=== PATIENT | female | born 1965 | race African-American/Black ===

== ENCOUNTER 2019-11-04 19:06 | Inpatient (IN) | payer OTHER ==
[~2019-11-04] VITALS: Ht 165.1 cm; Wt 100.7 kg
[2019-11-04 19:15] VITALS: BP 117/85
[2019-11-04] MEDS ORDERED: CLONIDINE0.1 MG GT (19:23)
[2019-11-04] MEDS ORDERED: OXCARBAZEPINE600 MG PO (19:23)
[2019-11-04] MEDS ORDERED: METFORMIN500 MG/5 M PO (19:23)
[2019-11-04] MEDS ORDERED: QUETIAPINE FUM300 MG ORAL (19:23)
[2019-11-04] MEDS ORDERED: FLUOXETINE HCL25 G1 MISC (19:23)
[2019-11-04] MEDS ORDERED: GABAPENTIN250 MG/5 M PO (19:23)
--- NOTE | 2019-11-04 19:34 | NUR ---
ED Nurse Note: Patient walked into the ED with complaints of gastric bypass blockage. Patient had surgery revision October 2018. Patient reported she was not able to hold any food and fluids recently. Patient reports epigastric pain 6/10 and denies any chest pain. Pain was described as aching and at times sharp. Patient is AAOX4 and ambulatory
--- NOTE | 2019-11-04 19:38 | NUR ---
ED Nurse Note: ERMD at bedside
[2019-11-04] MEDS ORDERED: Metoclopramide 10mg/2ml Inj IVP ONE (19:45)
[2019-11-04] MEDS ORDERED: Omnipaque-300 100ml vial INJ PRN (19:45)
[2019-11-04] MEDS ORDERED: Morphine Sulfate 4mg/ml Inj (IV USE ONLY) IVP ONE (19:45)
[2019-11-04 20:08] LABS: EOSINOPHILS % (AUTO) 1.9 % (0.0-3.0); HEMATOCRIT 38.3 % (37.0-47.0); HEMOGLOBIN 11.4 G/DL (12.0-16.0); MEAN CORPUSCULAR VOLUME 89 FL (80-99); MONOCYTES % (AUTO) 9.7 % (1.0-10.0); NEUTROPHILS % (AUTO) 60.4 % (45.0-75.0); PLATELET COUNT 254 K/UL (150-450); RED CELL DISTRIBUTION WIDTH 14.6 % (11.6-14.8); WHITE BLOOD COUNT 5.7 K/UL (4.8-10.8)
--- NOTE | 2019-11-04 20:11 | Emergency Room Report ---
History of Present Illness General Chief Complaint: Gastrointestinal Illness Source: Patient (Dominique Jha DO) Present Illness HPI Patient presents with complaints of mid abdominal pain multiple episodes of vomiting since yesterday Patient reports that she had previous gastric bypass She had a revision 2 years ago And now has been having increased vomiting denies any fevers denies any chest pain denies any diarrhea denies any back or flank pain denies any dysuria frequency (Dominique Jha DO) Allergies: Coded Allergies: No Known Allergies (Unverified , 11/04/19) COVID-19 Screening Contact w/high risk pt: No Recent Travel to affected area: No Experienced COVID-19 symptoms?: No COVID-19 Testing performed ETHNOLOGY PROFESSOR: No COVID-19 Screening: Negative COVID-19 (Dominique Jha DO) Patient History Past Medical History: see triage record Last Menstrual Period: 2009 Now: No : 1 Para: 0 Reviewed Nursing Documentation: PMH: Agreed; PSxH: Agreed (Dominique Jha DO) Nursing Documentation-PMH Past Medical History: No History, Except For History Of Psychiatric Problem: Yes - bipolar; anxiety; depression (Dominique Jha DO) Review of Systems All Other Systems: negative except mentioned in HPI (Dominique Jha DO) Physical Exam Vital Signs Date Time Temp Pulse Resp B/P (MAP) Pulse Ox O2 Delivery O2 Flow Rate FiO2 11/04/19 19:12 98.4 78 16 117/85 (96) 95 Room Air Sp02 EP Interpretation: reviewed, normal General Appearance: well appearing, no apparent distress Head: normocephalic, atraumatic Eyes: bilateral eye PERRL, bilateral eye EOMI ENT: hearing grossly normal, normal pharynx, TMs + canals normal, uvula midline Neck: full range of motion, supple, no meningismus, no bony tend Respiratory: lungs clear, normal breath sounds, no rhonchi, no respiratory distress, no retraction, no accessory muscle use Cardiovascular #1: normal peripheral pulses, regular rate, rhythm, no edema, no gallop, no JVD, no murmur Gastrointestinal: normal bowel sounds, non tender - On palpation however patient points to the mid epigastric region for discomfort, soft, no mass, no organomegaly, non-distended, no guarding, no hernia, no pulsatile mass, no rebound Genitourinary: no CVA tenderness Musculoskeletal: normal inspection Neurologic: motor strength/tone normal, associate director of sales III-XII nml as tested, oriented x3 , sensory intact, responsive Psychiatric: mood/affect normal Skin: no rash Lymphatic: normal inspection, no adenopathy (Dominique Jha DO) Medical Decision Making Diagnostic Impression: Primary Impression: Intractable vomiting with nausea Additional Impression: UTI (urinary tract infection) Qualified Codes: N30.00 - Acute cystitis without hematuria ER Course With the history exam and presentation, multiple differentials considered, including but not limited to appendicitis, gastritis, cholecystitis, diverticulitis, differential such as bowel obstruction also entertained Patient had CT imaging done with oral and IV contrast Labs Test 11/04/19 19:50 White Blood Count 5.7 K/UL (4.8-10.8) Red Blood Count 4.30 M/UL (4.20-5.40) Hemoglobin 11.4 G/DL (12.0-16.0) Hematocrit 38.3 % (37.0-47.0) Mean Corpuscular Volume 89 FL (80-99) Mean Corpuscular Hemoglobin 26.5 PG (27.0-31.0) Mean Corpuscular Hemoglobin Concent 29.8 G/DL (32.0-36.0) Red Cell Distribution Width 14.6 % (11.6-14.8) Platelet Count 254 K/UL (150-450) Mean Platelet Volume 7.0 FL (6.5-10.1) Neutrophils (%) (Auto) 60.4 % (45.0-75.0) Lymphocytes (%) (Auto) 27.0 % (20.0-45.0) Monocytes (%) (Auto) 9.7 % (1.0-10.0) Eosinophils (%) (Auto) 1.9 % (0.0-3.0) Basophils (%) (Auto) 1.0 % (0.0-2.0) Sodium Level 138 MMOL/L (136-145) Potassium Level 4.2 MMOL/L (3.5-5.1) Chloride Level 101 MMOL/L (98-107) Carbon Dioxide Level 27 MMOL/L (21-32) Anion Gap 10 mmol/L (5-15) Blood Urea Nitrogen 12 mg/dL (7-18) Creatinine 0.9 MG/DL (0.55-1.30) Estimat Glomerular Filtration Rate > 60 mL/min (>60) Glucose Level 99 MG/DL (74-106) Calcium Level 9.1 MG/DL (8.5-10.1) Total Bilirubin 0.2 MG/DL (0.2-1.0) Aspartate Amino Transf (AST/SGOT) 18 U/L (15-37) Alanine Aminotransferase (ALT/SGPT) 29 U/L (12-78) Alkaline Phosphatase 114 U/L (46-116) Total Protein 7.4 G/DL (6.4-8.2) Albumin 3.6 G/DL (3.4-5.0) Globulin 3.8 g/dL Albumin/Globulin Ratio 0.9 (1.0-2.7) Lipase 237 U/L (73-393) (Dominique Jha DO) ER Course Patient signed out to me. She presents with chief complaint of nausea and vomiting and unable to keep anything in. She has history of gastric bypass. CT scan showed enteritis but no evidence of any obstruction. Urinalysis with possible UTI. Antibiotics given here. IV fluids given here. I try to give patient p.o. challenge with liquid but she started vomiting again. Because of this, will admit for IV hydration. I contacted Dr. Medina for admission. (Ta Sawant MD) CT/MRI/US Diagnostic Results CT/MRI/US Diagnostic Results : Imaging Test Ordered: CT abdomen and pelvis Impression Read by radiologist. No obstruction. Status post gastric bypass surgery. Fluid within a few loops of small bowel and pelvis which may be seen in enteritis. (Ta Sawant MD) Last Vital Signs Date Time Temp Pulse Resp B/P (MAP) Pulse Ox O2 Delivery O2 Flow Rate FiO2 11/04/19 19:12 98.4 78 16 117/85 (96) 95 Room Air (Dominique Jha DO) Status: improved (Ta Sawant MD) Disposition: ADMITTED INPATIENT Condition: Serious Referrals: NOT CHOSEN DAVID/,REFERRING (PCP) Dominique Jha DO Nov 04, 2019 20:11 Ta Sawant MD Nov 04, 2019 22:35
[2019-11-04 20:22] LABS: ANION GAP 10 mmol/L (5-15); BLOOD UREA NITROGEN 12 mg/dL (7-18); CALCIUM 9.1 MG/DL (8.5-10.1); CARBON DIOXIDE 27 MMOL/L (21-32); CHLORIDE 101 MMOL/L (98-107); CREATININE 0.9 MG/DL (0.55-1.30); POTASSIUM 4.2 MMOL/L (3.5-5.1); SODIUM 138 MMOL/L (136-145)
[2019-11-04 20:26] LABS: ALANINE AMINOTRANSFERASE 29 U/L (12-78); ALBUMIN 3.6 G/DL (3.4-5.0); ALBUMIN/GLOBULIN RATIO 0.9 (1.0-2.7); ALKALINE PHOSPHATASE 114 U/L (46-116); ASPARTATE AMINO TRANSFERASE 18 U/L (15-37); BILIRUBIN,TOTAL 0.2 MG/DL (0.2-1.0)
--- NOTE | 2019-11-04 21:27 | Diagnostic Imaging Report ---
EXAM: CT Abdomen and Pelvis With Intravenous Contrast CLINICAL HISTORY: PAIN TECHNIQUE: Axial computed tomography images of the abdomen and pelvis with intravenous contrast. CTDI is 14 mGy and DLP is 836 mGy-cm. One or more of the following dose reduction techniques were used: automated exposure control, adjustment of the mA and/or kV according to patient size, use of iterative reconstruction technique. COMPARISON: No relevant prior studies available. FINDINGS: Lung bases: Linear subsegmental atelectasis at the left lung base. ABDOMEN: Liver: Unremarkable. No mass. Gallbladder and bile ducts: Status post cholecystectomy. No ductal dilation. Pancreas: Unremarkable. No mass. No ductal dilation. Spleen: Unremarkable. No splenomegaly. Adrenals: Unremarkable. No mass. Kidneys and ureters: Unremarkable. No solid mass. No hydronephrosis. Stomach and bowel: Status post gastric bypass surgery. Small hiatal hernia with contrast in the stomach and esophagus. There is some mild stranding adjacent to the anterior stomach. There is fluid present within a few nondilated loops of small bowel in the pelvis. No mucosal thickening. PELVIS: Appendix: Normal appendix. Bladder: Unremarkable. No mass. Reproductive: Unremarkable as visualized. ABDOMEN and PELVIS: Intraperitoneal space: Unremarkable. No free air. No significant fluid collection. Bones/joints: No acute fracture. No dislocation. Soft tissues: The subcutaneous scarring at the anterior abdomen. Vasculature: Unremarkable. No abdominal aortic aneurysm. Lymph nodes: Unremarkable. No enlarged lymph nodes. IMPRESSION: 1. Status post gastric bypass surgery. Small hiatal hernia. 2. Fluid within a few loops of small bowel in the pelvis which can be seen in enteritis, however can also be a normal finding. No evidence of bowel obstruction. 3. No other acute findings.
[2019-11-04 22:02] VITALS: BP 118/76
--- NOTE | 2019-11-04 22:14 | NUR ---
ED Nurse Note: Recieved report from SHAHANA Blankenship. Pt placed in ortho, VSS. will continue to monitor
[2019-11-04 22:27] LABS: APPEARANCE,URINE CLEAR; BILIRUBIN, URINE NEGATIVE (NEGATIVE); COLOR,URINE PALE YELLOW; GLUCOSE, URINE (UA) NEGATIVE (NEGATIVE); KETONES,URINE NEGATIVE (NEGATIVE); LEUKOCYTE ESTERASE ,URINE 3+ (NEGATIVE); NITRITE,URINE NEGATIVE (NEGATIVE); PH,URINE 6.5 (4.5-8.0); PROTEIN,URINE NEGATIVE (NEGATIVE); UROBILINOGEN,URINE NORMAL MG/DL (0.0-1.0)
[2019-11-04] MEDS ORDERED: cefTRIAXone 1 GM in NS 55 ML IVPB ONE (22:30)
[2019-11-04] MEDS ORDERED: QUEtiapine 200mg tab ORAL PRN (23:30)
--- NOTE | 2019-11-04 23:30 | NUR ---
NURSE NOTES: Received patient from ED via [facility]. Patient able to transfer from [facility] to unit bed with no assistance. VSS. Oriented to room and bathroom. Admission orders received from Dr Medina. Patient c/o mild pain and wants her nightly psych medications, Dr Medina aware. Belongings accounted for. Patient given non slip socks, bed low and locked.
[2019-11-04] MEDS ORDERED: Morphine Sulfate 2mg/ml Inj(IV/IM USE ONLY) IVP PRN (23:45)
[2019-11-05] VITALS: BP 140/85
[2019-11-05] MEDS: Morphine Sulfate 2mg/ml Inj(IV/IM USE ONLY) IVP PRN ×2 (00:03→10:52)
[2019-11-05] MEDS ORDERED: OXcarbazepine 150mg tab ORAL SCH (01:00)
--- NOTE | 2019-11-05 01:00 | NUR ---
NURSE NOTES: Patient able to tolerate PO meds with small sip of water. No c/o nausea at this time.
[2019-11-05] MEDS: D5NS 1,000 ML IV SCH ×2 (01:30→18:31)
[2019-11-05 04:00] VITALS: BP 117/74
--- NOTE | 2019-11-05 07:40 | NUR ---
HAND-OFF: Report given to SHAHANA Huynh.
--- NOTE | 2019-11-05 07:56 | NUR ---
NURSE NOTES: Patient resting,alert when name called ,respirations unlabored.IV fluids infusing as ordered.Call light within reach.
[2019-11-05 08:00] VITALS: BP 102/68
--- NOTE | 2019-11-05 08:14 | Consultation ---
History of Present Illness General Chief Complaint: Gastrointestinal Illness Present Illness HPI Ms. Albright is a 54 yo female with prior hx of gastric bypass (done in [place] >10 years ago, then repaired 1 year ago), obesity, ddepression, presenting with acute on chronic abdominal pain and acute nausea, vomiting. She has been experiencing episodic severe abdominal pain in mid-abdomen for last 1 year, which has been getting more frequent. However, 2 days ago, she started feeling that food was not going down. She would throw back up the food contents, but was able to tolerate liquids. Last BM was 2 days ago, was diarrhea-like, but no BM since. Passing gas. Currently feeling okay. no fever, chills, SOB, cough, chest pain. Allergies: Coded Allergies: No Known Allergies (Unverified , 11/04/19) Medication History Scheduled Metformin HCl (Metformin HCl), 500 MG PO BID, (Reported) Quetiapine Fumarate (Quetiapine Fumarate), 700 MG ORAL BEDTIME, (Reported) Scheduled PRN Clonidine HCl (Clonidine HCl), 0.1 MG GT for anxiety, (Reported) Gabapentin (Gabapentin), 600 MG PO TID PRN for anxiety, (Reported) Miscellaneous Medications Fluoxetine (Fluoxetine Hcl), 20 MG MISC, (Reported) Oxcarbazepine (Oxcarbazepine), 600 MG PO, (Reported) Patient History Healthcare decision maker Resuscitation status Advanced Directive on File Review of Systems All Other Systems: negative except mentioned in HPI Physical Exam General Appearance: no apparent distress Lines, tubes and drains: peripheral HEENT: normocephalic Neck: non-tender, normal alignment Respiratory/Chest: chest wall non-tender, lungs clear Abdomen: soft, hyperactive bowel sounds Extremities: normal range of motion, non-tender Skin Exam: normal pigmentation Neurologic: alert, oriented x 3 Last 24 Hour Vital Signs Date Time Temp Pulse Resp B/P (MAP) Pulse Ox O2 Delivery O2 Flow Rate FiO2 11/05/19 04:00 97.5 74 17 117/74 (88) 95 11/05/19 01:53 Room Air 11/05/19 00:33 98.0 11/05/19 00:00 97.1 81 17 140/85 (103) 97 11/04/19 22:55 98.0 88 16 118/76 98 Room Air 98 11/04/19 22:02 98.0 88 18 118/76 98 Room Air 98 11/04/19 22:02 78 16 Room Air 98 11/04/19 20:30 98.0 11/04/19 19:15 98.4 16 117/85 95 Room Air 11/04/19 19:12 98.4 78 16 117/85 (96) 95 Room Air Laboratory Tests Test 11/04/19 19:50 11/04/19 22:00 White Blood Count 5.7 K/UL (4.8-10.8) Red Blood Count 4.30 M/UL (4.20-5.40) Hemoglobin 11.4 G/DL (12.0-16.0) L Hematocrit 38.3 % (37.0-47.0) Mean Corpuscular Volume 89 FL (80-99) Mean Corpuscular Hemoglobin 26.5 PG (27.0-31.0) L Mean Corpuscular Hemoglobin Concent 29.8 G/DL (32.0-36.0) L Red Cell Distribution Width 14.6 % (11.6-14.8) Platelet Count 254 K/UL (150-450) Mean Platelet Volume 7.0 FL (6.5-10.1) Neutrophils (%) (Auto) 60.4 % (45.0-75.0) Lymphocytes (%) (Auto) 27.0 % (20.0-45.0) Monocytes (%) (Auto) 9.7 % (1.0-10.0) Eosinophils (%) (Auto) 1.9 % (0.0-3.0) Basophils (%) (Auto) 1.0 % (0.0-2.0) Sodium Level 138 MMOL/L (136-145) Potassium Level 4.2 MMOL/L (3.5-5.1) Chloride Level 101 MMOL/L (98-107) Carbon Dioxide Level 27 MMOL/L (21-32) Anion Gap 10 mmol/L (5-15) Blood Urea Nitrogen 12 mg/dL (7-18) Creatinine 0.9 MG/DL (0.55-1.30) Estimat Glomerular Filtration Rate > 60 mL/min (>60) Glucose Level 99 MG/DL (74-106) Calcium Level 9.1 MG/DL (8.5-10.1) Total Bilirubin 0.2 MG/DL (0.2-1.0) Aspartate Amino Transf (AST/SGOT) 18 U/L (15-37) Alanine Aminotransferase (ALT/SGPT) 29 U/L (12-78) Alkaline Phosphatase 114 U/L (46-116) Total Protein 7.4 G/DL (6.4-8.2) Albumin 3.6 G/DL (3.4-5.0) Globulin 3.8 g/dL Albumin/Globulin Ratio 0.9 (1.0-2.7) L Lipase 237 U/L (73-393) Urine Color Pale yellow Urine Appearance Clear Urine pH 6.5 (4.5-8.0) Urine Specific [place] 1.015 (1.005-1.035) Urine Protein Negative (NEGATIVE) Urine Glucose (UA) Negative (NEGATIVE) Urine Ketones Negative (NEGATIVE) Urine Blood Negative (NEGATIVE) Urine Nitrite Negative (NEGATIVE) Urine Bilirubin Negative (NEGATIVE) Urine Urobilinogen Normal MG/DL (0.0-1.0) Urine Leukocyte Esterase 3+ (NEGATIVE) H Urine RBC 0-2 /HPF (0 - 2) Urine WBC 5-10 /HPF (0 - 2) H Urine Squamous Epithelial Cells Moderate /LPF (NONE/OCC) H Urine Bacteria Few /HPF (NONE) Height (Feet): 5 Height (Inches): 5.00 Weight (Pounds): 222 Medications Current Medications Medications (Trade) Dose Ordered Sig/Cassandra Route PRN Reason Start Time Stop Time Status Last Admin Dose Admin Acetaminophen (Tylenol) 650 mg Q6H PRN ORAL Mild Pain (Pain Scale 1-3) 11/04/19 23:45 12/04/19 23:44 Barium Sulfate (Readi-Cat 2) 450 ml NOW PRN ORAL Radiology Procedure 11/04/19 19:45 11/06/19 19:35 Dextrose/Sodium Chloride 1,000 ml @ 75 mls/hr [id number] IV 11/05/19 01:00 12/05/19 00:59 11/05/19 01:30 Fluoxetine HCl (PROzac) 20 mg DAILY ORAL 11/05/19 09:00 12/05/19 08:59 Iohexol (OMNIPAQUE-300 100ml) 100 ml NOW PRN INJ Radiology Procedure 11/04/19 19:45 11/06/19 19:35 Morphine Sulfate (Morphine Sulfate) 1 mg Q6H PRN IVP Moderate Pain (Pain Scale 4-6) 11/04/19 23:45 11/11/19 23:44 11/05/19 00:03 Morphine Sulfate (Morphine Sulfate) 2 mg Q6H PRN IVP Severe Pain (Pain Scale 7-10) 11/04/19 23:45 11/11/19 23:44 Ondansetron HCl (Zofran) 4 mg PRN PRN IVP Nausea & Vomiting 11/04/19 22:45 Oxcarbazepine (TrileptaL) 600 mg BEDTIME ORAL 11/05/19 21:00 12/05/19 20:59 Piperacillin Sod/ Tazobactam Sod 3.375 gm/Sodium Chloride 110 ml @ 27.5 mls/hr Q8H IVPB 11/05/19 09:00 11/12/19 08:59 Quetiapine Fumarate (SEROqueL) 300 mg BEDTIME PRN ORAL INSOMNIA 11/04/19 23:30 12/19/19 23:29 11/05/19 00:02 Assessment/Plan Diagnosis [place]: #hx of gastric bypass #intractaable nausea, vomiting #Acute on chronic abdominal pain #Depression -GI eval -CLD for today. NPO after MN for endoscopy tmrw. -Pain control. -continue home quetiapine -continue home fluoxetine -otherwise euthymic on exam. Time of encounter 70 mins, >40 mins spent on counseling and coordination of care. Salvador Medina M.D. Nov 05, 2019 08:14
--- NOTE | 2019-11-05 08:50 | General Progress Note ---
Assessment/Plan Problem List: (1) H/O gastric bypass ICD Codes: Z98.84 - Bariatric surgery status SNOMED: 609110998 (2) Intractable vomiting with nausea ICD Codes: R11.2 - Nausea with vomiting, unspecified SNOMED: 380091034 (3) UTI (urinary tract infection) ICD Codes: N39.0 - Urinary tract infection, site not specified SNOMED: 68997270 Qualifiers: Qualified Codes: N30.00 - Acute cystitis without hematuria Assessment/Plan: ppi clears bowel regimen EGD in am CT reviewed abx for UTI Subjective ROS Limited/Unobtainable: Yes Allergies: Coded Allergies: No Known Allergies (Unverified , 11/04/19) Objective Last 24 Hour Vital Signs Date Time Temp Pulse Resp B/P (MAP) Pulse Ox O2 Delivery O2 Flow Rate FiO2 11/05/19 04:00 97.5 74 17 117/74 (88) 95 11/05/19 01:53 Room Air 11/05/19 00:33 98.0 11/05/19 00:00 97.1 81 17 140/85 (103) 97 11/04/19 22:55 98.0 88 16 118/76 98 Room Air 98 11/04/19 22:02 98.0 88 18 118/76 98 Room Air 98 11/04/19 22:02 78 16 Room Air 98 11/04/19 20:30 98.0 11/04/19 19:15 98.4 16 117/85 95 Room Air 11/04/19 19:12 98.4 78 16 117/85 (96) 95 Room Air Laboratory Tests 11/04/19 19:50: White Blood Count 5.7, Red Blood Count 4.30, Hemoglobin 11.4L, Hematocrit 38.3, Mean Corpuscular Volume 89, Mean Corpuscular Hemoglobin 26.5L, Mean Corpuscular Hemoglobin Concent 29.8L, Red Cell Distribution Width 14.6, Platelet Count 254, Mean Platelet Volume 7.0, Neutrophils (%) (Auto) 60.4, Lymphocytes (%) (Auto) 27.0, Monocytes (%) (Auto) 9.7, Eosinophils (%) (Auto) 1.9, Basophils (%) (Auto ) 1.0, Sodium Level 138, Potassium Level 4.2, Chloride Level 101, Carbon Dioxide Level 27, Anion Gap 10, Blood Urea Nitrogen 12, Creatinine 0.9, Estimat Glomerular Filtration Rate > 60, Glucose Level 99, Calcium Level 9.1, Total Bilirubin 0.2, Aspartate Amino Transf (AST/SGOT) 18, Alanine Aminotransferase ( ALT/SGPT) 29, Alkaline Phosphatase 114, Total Protein 7.4, Albumin 3.6, Globulin 3.8, Albumin/Globulin Ratio 0.9L, Lipase 237 11/04/19 22:00: Urine Color Pale yellow, Urine Appearance Clear, Urine pH 6.5, Urine Specific [place] 1.015, Urine Protein Negative, Urine Glucose (UA) Negative, Urine Ketones Negative, Urine Blood Negative, Urine Nitrite Negative, Urine Bilirubin Negative, Urine Urobilinogen Normal, Urine Leukocyte Esterase 3+H, Urine RBC 0-2 , Urine WBC 5-10H, Urine Squamous Epithelial Cells ModerateH, Urine Bacteria Few Height (Feet): 5 Height (Inches): 5.00 Weight (Pounds): 222 General Appearance: alert EENT: normal ENT inspection Neck: supple Cardiovascular: normal rate Respiratory/Chest: lungs clear Abdomen: normal bowel sounds, non tender, soft Extremities: non-tender Bradley Heath MD Nov 05, 2019 08:50
--- NOTE | 2019-11-05 09:12 | NUR ---
*-* NO INSURANCE INFORMATION IN THE BAR UNABLE TO SEND CLINICALS OR REVIEWS TO [employer]. *-*
[2019-11-05] MEDS: Pantoprazole Inj IV SCH ×2 (10:00→20:49)
[2019-11-05] MEDS: Docusate 100mg cap ORAL SCH ×2 (10:01→18:00)
[2019-11-05] MEDS: Piperacillin/Tazobactam 3.375 GM in NS 110 ML IVPB SCH ×2 (10:02→17:00)
--- NOTE | 2019-11-05 10:53 | NUR ---
*-* INSURANCE *-* ALL AVAILABLE CLINICALS HAVE BEEN FAXED TO: [facility]#[id number] P:[phone] F:[phone]
[2019-11-05 12:00] VITALS: BP 110/70
--- NOTE | 2019-11-05 14:13 | NUR ---
CASE MANAGEMENT: INITIAL REVIEW 54YR OLD FEMALE FROM HOME CC:GASTROINTESTINAL ILLNESS SI: INTRACTABLE VOMITING WITH NAUSEA . UTI 98.4 78 16 117/85 95% ON RA IS:IV REGLAN X1 IV ZOFRAN X1 CT Abdomen Pelvis w/Contrast-Small hiatal hernia. Fluid within a few loops of small bowel in the pelvis which can be seen in enteritis, however can also be a normal finding. No evidence of bowel obstruction. No other acute findings. \: [facility] DCP: HOME WHEN STABLE CASE MANAGEMENT: REVIEW 11/05/19 SI: INTRACTABLE VOMITING WITH NAUSEA . UTI 97.5 74 17 117/74 95 % ON RA IS:IV ZOSYN TID IV PROTONIX BID IV D5@75ML/HR SEROQUEL PO QHS/PRN IV MORPHINE SULFATE Q6HR/PRN \: [facility] DCP: HOME WHEN STABLE PLAN: BOWEL REGIMEN START ON CLEARS CONT IV ABDX FOR UTI EGD IN AM
--- NOTE | 2019-11-05 16:15 | NUR ---
*-* INSURANCE *-* ALL AVAILABLE CLINICALS HAVE BEEN FAXED TO: [facility]#[id number] P:[phone] F:[phone] F:[phone]~~PREFERRED
--- NOTE | 2019-11-05 17:16 | History and Physical ---
History of Present Illness General Date patient seen: Nov 05, 2019 Reason for Hospitalization: Gastrointestinal Illness Present Illness HPI Ms. Albright is a 54 yo female with prior hx of gastric bypass (done in [place] >10 years ago, then repaired 1 year ago), obesity, ddepression, presenting with acute on chronic abdominal pain and acute nausea, vomiting. She has been experiencing episodic severe abdominal pain in mid-abdomen for last 1 year, which has been getting more frequent. However, 2 days ago, she started feeling that food was not going down. She would throw back up the food contents, but was able to tolerate liquids. Last BM was 2 days ago, was diarrhea-like, but no BM since. Passing gas. Currently feeling okay. no fever, chills, SOB, cough, chest pain. Allergies: Coded Allergies: No Known Allergies (Unverified , 11/04/19) COVID-19 Screening Contact w/high risk pt: No Recent Travel to affected area: No Experienced COVID-19 symptoms?: No Medication History Scheduled Metformin HCl (Metformin HCl), 500 MG PO BID, (Reported) Quetiapine Fumarate (Quetiapine Fumarate), 100 MG ORAL DAILY, (Reported) Scheduled PRN Clonidine HCl (Clonidine HCl), 0.1 MG GT for anxiety, (Reported) Gabapentin (Gabapentin), 600 MG PO TID PRN for anxiety, (Reported) Miscellaneous Medications Fluoxetine (Fluoxetine Hcl), 20 MG MISC, (Reported) Oxcarbazepine (Oxcarbazepine), 600 MG PO, (Reported) Patient History Healthcare decision maker Resuscitation status Advanced Directive on File Review of Systems Constitutional: Denies: no symptoms, see HPI, chills, sweats, fever, malaise, weakness, other Eye: Denies: no symptoms, see HPI, eye pain, blurred vision, tearing, double vision, nose pain, nose congestion, acuity changes, discharge, other ENT: Denies: no symptoms, see HPI, ear pain, ear discharge, nose pain, nose congestion, throat pain, throat swelling, mouth pain, hearing loss, nasal discharge, other Respiratory: Denies: no symptoms, see HPI, cough, orthopnea, shortness of breath, stridor, wheezing, CURRIE, sputum, other Cardiovascular: Denies: no symptoms, see HPI, chest pain, edema, palpitations, syncope, PND, other Gastrointestinal: Reports: abdominal pain, nausea, vomiting Genitourinary: Denies: no symptoms, see HPI, discharge, dysuria, frequency, hematuria, pain, retention, incontinence, urgency, vag bleed/dc, other Musculoskeletal: Denies: no symptoms, see HPI, back pain, gout, joint pain, joint swelling, muscle pain, muscle stiffness, other Skin: Denies: no symptoms, see HPI, rash, change in color, change in hair/nails , dryness, lesions, other Psychiatric: Denies: no symptoms, see HPI, prior hx, anxiety, depressed feelings, emotional problems, SI, HI, hallucinations, other Neurological: Denies: no symptoms, see HPI, headache, numbness, paresthesia, seizure, tingling, tremors, focal weakness, syncope, dizziness, other Endocrine: Denies: no symptoms, see HPI, excessive sweating, flushing, intolerance to temperature, increased thirst, increased urine, unexplained weight loss, other Hematologic/Lymphatic: Denies: no symptoms, see HPI, anemia, blood clots, easy bleeding, easy bruising, swollen glands, diathesis, other Physical Exam General Appearance: no apparent distress, alert HEENT: normocephalic, atraumatic Neck: supple Respiratory/Chest: lungs clear, normal breath sounds Cardiovascular/Chest: normal rate, regular rhythm Abdomen: normal bowel sounds, non tender, soft Neurologic: alert, oriented x 3 Last 24 Hour Vital Signs Date Time Temp Pulse Resp B/P (MAP) Pulse Ox O2 Delivery O2 Flow Rate FiO2 11/05/19 12:00 98.1 72 18 110/70 (83) 99 11/05/19 09:00 Room Air 11/05/19 08:00 97.6 68 19 102/68 (79) 95 11/05/19 04:00 97.5 74 17 117/74 (88) 95 11/05/19 01:53 Room Air 11/05/19 00:33 98.0 11/05/19 00:00 97.1 81 17 140/85 (103) 97 11/04/19 22:55 98.0 88 16 118/76 98 Room Air 98 11/04/19 22:02 98.0 88 18 118/76 98 Room Air 98 11/04/19 22:02 78 16 Room Air 98 11/04/19 20:30 98.0 11/04/19 19:15 98.4 16 117/85 95 Room Air 11/04/19 19:12 98.4 78 16 117/85 (96) 95 Room Air Laboratory Tests Test 11/04/19 19:50 11/04/19 22:00 11/05/19 15:00 White Blood Count 5.7 K/UL (4.8-10.8) Red Blood Count 4.30 M/UL (4.20-5.40) Hemoglobin 11.4 G/DL (12.0-16.0) L Hematocrit 38.3 % (37.0-47.0) Mean Corpuscular Volume 89 FL (80-99) Mean Corpuscular Hemoglobin 26.5 PG (27.0-31.0) L Mean Corpuscular Hemoglobin Concent 29.8 G/DL (32.0-36.0) L Red Cell Distribution Width 14.6 % (11.6-14.8) Platelet Count 254 K/UL (150-450) Mean Platelet Volume 7.0 FL (6.5-10.1) Neutrophils (%) (Auto) 60.4 % (45.0-75.0) Lymphocytes (%) (Auto) 27.0 % (20.0-45.0) Monocytes (%) (Auto) 9.7 % (1.0-10.0) Eosinophils (%) (Auto) 1.9 % (0.0-3.0) Basophils (%) (Auto) 1.0 % (0.0-2.0) Sodium Level 138 MMOL/L (136-145) Potassium Level 4.2 MMOL/L (3.5-5.1) Chloride Level 101 MMOL/L (98-107) Carbon Dioxide Level 27 MMOL/L (21-32) Anion Gap 10 mmol/L (5-15) Blood Urea Nitrogen 12 mg/dL (7-18) Creatinine 0.9 MG/DL (0.55-1.30) Estimat Glomerular Filtration Rate > 60 mL/min (>60) Glucose Level 99 MG/DL (74-106) Calcium Level 9.1 MG/DL (8.5-10.1) Total Bilirubin 0.2 MG/DL (0.2-1.0) Aspartate Amino Transf (AST/SGOT) 18 U/L (15-37) Alanine Aminotransferase (ALT/SGPT) 29 U/L (12-78) Alkaline Phosphatase 114 U/L (46-116) Total Protein 7.4 G/DL (6.4-8.2) Albumin 3.6 G/DL (3.4-5.0) Globulin 3.8 g/dL Albumin/Globulin Ratio 0.9 (1.0-2.7) L Lipase 237 U/L (73-393) Urine Color Pale yellow Urine Appearance Clear Urine pH 6.5 (4.5-8.0) Urine Specific [place] 1.015 (1.005-1.035) Urine Protein Negative (NEGATIVE) Urine Glucose (UA) Negative (NEGATIVE) Urine Ketones Negative (NEGATIVE) Urine Blood Negative (NEGATIVE) Urine Nitrite Negative (NEGATIVE) Urine Bilirubin Negative (NEGATIVE) Urine Urobilinogen Normal MG/DL (0.0-1.0) Urine Leukocyte Esterase 3+ (NEGATIVE) H Urine RBC 0-2 /HPF (0 - 2) Urine WBC 5-10 /HPF (0 - 2) H Urine Squamous Epithelial Cells Moderate /LPF (NONE/OCC) H Urine Bacteria Few /HPF (NONE) Urine Opiates Screen Negative (NEGATIVE) Urine Barbiturates Screen Negative (NEGATIVE) Phencyclidine (PCP) Screen Negative (NEGATIVE) Urine Amphetamines Screen Negative (NEGATIVE) Urine Benzodiazepines Screen Positive (NEGATIVE) H Urine Cocaine Screen Negative (NEGATIVE) Urine Marijuana (THC) Screen Negative (NEGATIVE) Height (Feet): 5 Height (Inches): 5.00 Weight (Pounds): 222 Medications Current Medications Medications (Trade) Dose Ordered Sig/Cassandra Route PRN Reason Start Time Stop Time Status Last Admin Dose Admin Acetaminophen (Tylenol) 650 mg Q6H PRN ORAL Mild Pain (Pain Scale 1-3) 11/04/19 23:45 12/04/19 23:44 Barium Sulfate (Readi-Cat 2) 450 ml NOW PRN ORAL Radiology Procedure 11/04/19 19:45 11/06/19 19:35 Dextrose/Sodium Chloride 1,000 ml @ 75 mls/hr [id number] IV 11/05/19 01:00 12/05/19 00:59 11/05/19 01:30 Docusate Sodium (Colace) 100 mg TWICE A DAY ORAL 11/05/19 09:00 12/05/19 08:59 11/05/19 10:01 Fluoxetine HCl (PROzac) 20 mg DAILY ORAL 11/05/19 09:00 12/05/19 08:59 11/05/19 10:03 Iohexol (OMNIPAQUE-300 100ml) 100 ml NOW PRN INJ Radiology Procedure 11/04/19 19:45 11/06/19 19:35 Morphine Sulfate (Morphine Sulfate) 1 mg Q6H PRN IVP Moderate Pain (Pain Scale 4-6) 11/04/19 23:45 11/11/19 23:44 11/05/19 10:52 Morphine Sulfate (Morphine Sulfate) 2 mg Q6H PRN IVP Severe Pain (Pain Scale 7-10) 11/04/19 23:45 11/11/19 23:44 Ondansetron HCl (Zofran) 4 mg PRN PRN IVP Nausea & Vomiting 11/04/19 22:45 Oxcarbazepine (TrileptaL) 600 mg BEDTIME ORAL 11/05/19 21:00 12/05/19 20:59 Pantoprazole (Protonix) 40 mg EVERY 12 HOURS IV 11/05/19 09:00 12/05/19 08:59 11/05/19 10:00 Piperacillin Sod/ Tazobactam Sod 3.375 gm/Sodium Chloride 110 ml @ 27.5 mls/hr Q8H IVPB 11/05/19 09:00 11/12/19 08:59 11/05/19 10:02 Polyethylene Glycol (Miralax) 17 gm BEDTIME ORAL 11/05/19 21:00 12/05/19 20:59 Quetiapine Fumarate (SEROqueL) 300 mg BEDTIME PRN ORAL INSOMNIA 11/04/19 23:30 12/19/19 23:29 11/05/19 00:02 Assessment/Plan Problem List: (1) Intractable vomiting with nausea ICD Codes: R11.2 - Nausea with vomiting, unspecified SNOMED: 231307749 (2) H/O gastric bypass ICD Codes: Z98.84 - Bariatric surgery status SNOMED: 569095977 Status: stable Diagnosis [place] I: Ms. Albright is a 54year old female with obesity, hx of bypass surgery, depression, presenting with aucte on chronic abd pain and 2 days of acute n/v. #hx of gastric bypass #intractaable nausea, vomiting #Acute on chronic abdominal pain -admit inpatient -GI consult appreciated -CLD for today. NPO after MN for endoscopy tmrw. -Pain control. #Obesity -diet/exercise counseling. #Depression -continue home quetiapine -continue home fluoxetine -otherwise euthymic on exam. Time of encounter, 75 mins, >40 mins spent on counseling and coordination of care. Extra 32 mins spent on chart review of EMR records, including current/prior physician documentation, labs, imaging, medications. Time of note doesn't reflect time of encounter. Jos Celestin MD Nov 05, 2019 17:16
--- NOTE | 2019-11-05 18:00 | NUR ---
NURSE NOTES: IV infusing as ordered,patient requesting,medication for anxiety,waiting for call from Doctor.Call light within reach.
[2019-11-05 18:33] VITALS: BP 113/80
--- NOTE | 2019-11-05 19:48 | NUR ---
HAND-OFF: Report given to Shaneka HARKINS.
--- NOTE | 2019-11-05 19:49 | NUR ---
NURSE NOTES: Report received from SHAHANA Huynh. Patient in stable condition, asking for something for anxiety. Will follow up with Dr. Medina.
[2019-11-05 20:00] VITALS: BP 118/78
[2019-11-05] MEDS: LORazepam 1mg tab ORAL PRN (20:49)
[2019-11-05] MEDS: OXcarbazepine 150mg tab ORAL SCH (20:49)
[2019-11-05] MEDS: Miralax 17gm pkt ORAL SCH (20:50)
[2019-11-05] MEDS: QUEtiapine 200mg tab ORAL SCH (21:53)
[2019-11-06] VITALS (12 sets, daily range): BP systolic 104–131; BP diastolic 64–84
[2019-11-06] MEDS: D5NS 1,000 ML IV SCH ×2 (03:40→17:24)
[2019-11-06 06:37] LABS: BASOPHILS % (AUTO) 1.2 % (0.0-2.0); HEMATOCRIT 35.5 % (37.0-47.0); HEMOGLOBIN 11.7 G/DL (12.0-16.0); LYMPHOCYTES % (AUTO) 33.7 % (20.0-45.0); MEAN CORPUSCULAR VOLUME 82 FL (80-99); MONOCYTES % (AUTO) 8.9 % (1.0-10.0); NEUTROPHILS % (AUTO) 52.3 % (45.0-75.0); PLATELET COUNT 237 K/UL (150-450); RED BLOOD COUNT 4.34 M/UL (4.20-5.40); RED CELL DISTRIBUTION WIDTH 12.9 % (11.6-14.8); WHITE BLOOD COUNT 4.7 K/UL (4.8-10.8)
[2019-11-06 06:53] LABS: AMYLASE 80 U/L (25-115)
[2019-11-06 06:56] LABS: ALANINE AMINOTRANSFERASE 26 U/L (12-78); ALBUMIN 3.2 G/DL (3.4-5.0); ALBUMIN/GLOBULIN RATIO 0.9 (1.0-2.7); ALKALINE PHOSPHATASE 103 U/L (46-116); ANION GAP 7 mmol/L (5-15); ASPARTATE AMINO TRANSFERASE 19 U/L (15-37); BILIRUBIN,TOTAL 0.3 MG/DL (0.2-1.0); BLOOD UREA NITROGEN 7 mg/dL (7-18); CALCIUM 8.7 MG/DL (8.5-10.1); CARBON DIOXIDE 29 MMOL/L (21-32); CHLORIDE 104 MMOL/L (98-107); CREATININE 0.8 MG/DL (0.55-1.30); PHOSPHORUS 4.7 MG/DL (2.5-4.9); POTASSIUM 4.2 MMOL/L (3.5-5.1); SODIUM 140 MMOL/L (136-145)
[2019-11-06] MEDS ORDERED: fentaNYL 100 mcg/2 mL IV ONE (08:00)
--- NOTE | 2019-11-06 08:00 | NUR ---
NURSE NOTES: Received report from Shaneka HARKINS, pt a/a/o x4 laying in bed with no signs of distress or other issues at this time. IV on the right wrist gauge#20 running D5 NS @75ml/hr. pt is bee n NPO since midnight for EGD with possible biopsy and possible binding today. shonna light within reach, bed in lowest position, side rales up x2. I will f/u as needed.
[2019-11-06] MEDS: Docusate 100mg cap ORAL SCH ×2 (09:00→17:22)
[2019-11-06] MEDS: Pantoprazole Inj IV SCH ×2 (09:00→21:03)
[2019-11-06] MEDS ORDERED: Midazolam 2mg/2ml Inj ONE (09:54)
--- NOTE | 2019-11-06 09:57 | Pre-Procedure Note/Attestation ---
Pre-Procedure Note/Attestation Complete Prior to Procedure Planned Procedure: not applicable Procedure Narrative: egd Indications for Procedure Pre-Operative Diagnosis: gib Attestation I attest that I discussed the nature of the procedure; its benefits; risks and complications; and alternatives (and the risks and benefits of such alternatives ), prior to the procedure, with the patient (or the patient's legal community relations representative). I attest that, if there was a reasonable possibility of needing a blood transfusion, the patient (or the patient's legal community relations representative) was given the [facility] standardized written summary, pursuant to the [place]opi Nikunj Blood Safety Act ([place] Health and Safety Code # 1645, as amended). I attest that I re-evaluated the patient just prior to the surgery and that there has been no change in the patient's H&P, except as documented below: Bradley Heath MD Nov 06, 2019 09:57
[2019-11-06] MEDS ORDERED: NS 500ML IVPB ONE (10:00)
--- NOTE | 2019-11-06 10:11 | Endoscopy Procedure Note ---
Endoscopy Procedure Note General Indication for Procedure: vomiting Procedures Performed: EGD Operative Findings/Diagnosis: gastritis Specimen: yes Pt Tolerated Procedure Well: Yes Estimated Blood Loss: none Anesthesia Anesthesiologist: sienna Anesthesia: MAC Inserted Devices Implant(s) used?: No GI Core Measures 50 yrs or older w/o bx or poly: Not Applicable 10yrs. F/U recommended: Not Applicable Bradley Heath MD Nov 06, 2019 10:10
--- NOTE | 2019-11-06 10:25 | Anethesia Preoperative Eval ---
Anesthesia Pre-op PMH/ROS General Date of Evaluation: Nov 06, 2019 Time of Evaluation: 09:50 Anesthesiologist: Meir ASA Score: ASA 2 Mallampati Score Class I : Soft palate, uvula, fauces, pillars visible Class II: Soft palate, uvula, fauces visible Class III: Soft palate, base of uvula visible Class IV: Only hard plate visible Mallampati Classification: Class II Surgeon: Kumar Diagnosis: Abdominal pain Surgical Procedure: EGD Anesthesia History: none Family History: no anesthesia problems Allergies: Coded Allergies: No Known Allergies (Unverified , 11/04/19) Medications: see eMAR Patient NPO?: Yes Past Medical History Cardiovascular: Reports: HTN; Denies: CAD, [place], valve dz, arrhythmia, other Pulmonary: Reports: OSWALDO; Denies: asthma, COPD, other Gastrointestinal/Genitourinary: Reports: GERD; Denies: CRI, ESRD, other Neurologic/Psychiatric: Reports: depression/anxiety, other - bipolar; Denies: dementia, CVA, TIA Endocrine: Reports: DM, hypothyroidism; Denies: steroids, other HEENT: Denies: cataract (L), cataract (R), glaucoma, BISHOP PAIUTE (L), BISHOP PAIUTE (R), other Hematology/Immune: Reports: anemia - mild; Denies: DVT, bleeding disorder, other Musculoskeletal/Integumentary: Denies: OA, RA, DJD, DDD, edema, other Other: obesity PMH Narrative: as above PSxH Narrative: Gastric bypass and revision Anesthesia Pre-op Phys. Exam Physician Exam Last Vital Signs Date Time Temp Pulse Resp B/P (MAP) Pulse Ox O2 Delivery O2 Flow Rate FiO2 11/06/19 04:00 98.0 67 20 115/72 (86) 98 11/05/19 21:00 Room Air 11/04/19 22:55 98 Constitutional: NAD Neurologic: CN 2-12 intact Cardiovascular: RRR, no M/R/G Respiratory: CTA Gastrointestinal: other - obesity Airway Exam Mallampati Score: Class II MO: full Neck: flexible Teeth: intact Dentures: no upper, no lower Anesthesia Pre-op A/P Labs Hematology Test 11/06/19 05:30 White Blood Count 4.7 K/UL (4.8-10.8) L Red Blood Count 4.34 M/UL (4.20-5.40) Hemoglobin 11.7 G/DL (12.0-16.0) L Hematocrit 35.5 % (37.0-47.0) L Mean Corpuscular Volume 82 FL (80-99) Mean Corpuscular Hemoglobin 26.9 PG (27.0-31.0) L Mean Corpuscular Hemoglobin Concent 32.9 G/DL (32.0-36.0) Red Cell Distribution Width 12.9 % (11.6-14.8) Platelet Count 237 K/UL (150-450) Mean Platelet Volume 5.8 FL (6.5-10.1) L Neutrophils (%) (Auto) 52.3 % (45.0-75.0) Lymphocytes (%) (Auto) 33.7 % (20.0-45.0) Monocytes (%) (Auto) 8.9 % (1.0-10.0) Eosinophils (%) (Auto) 4.0 % (0.0-3.0) H Basophils (%) (Auto) 1.2 % (0.0-2.0) Chemistry Test 11/06/19 05:30 Sodium Level 140 MMOL/L (136-145) Potassium Level 4.2 MMOL/L (3.5-5.1) Chloride Level 104 MMOL/L (98-107) Carbon Dioxide Level 29 MMOL/L (21-32) Anion Gap 7 mmol/L (5-15) Blood Urea Nitrogen 7 mg/dL (7-18) Creatinine 0.8 MG/DL (0.55-1.30) Estimat Glomerular Filtration Rate > 60 mL/min (>60) Glucose Level 87 MG/DL (74-106) Calcium Level 8.7 MG/DL (8.5-10.1) Phosphorus Level 4.7 MG/DL (2.5-4.9) Magnesium Level 2.0 MG/DL (1.8-2.4) Total Bilirubin 0.3 MG/DL (0.2-1.0) Aspartate Amino Transf (AST/SGOT) 19 U/L (15-37) Alanine Aminotransferase (ALT/SGPT) 26 U/L (12-78) Alkaline Phosphatase 103 U/L (46-116) Total Protein 6.8 G/DL (6.4-8.2) Albumin 3.2 G/DL (3.4-5.0) L Globulin 3.6 g/dL Albumin/Globulin Ratio 0.9 (1.0-2.7) L Amylase Level 80 U/L (25-115) Lipase 231 U/L (73-393) Risk Assessment & Plan Assessment: ASA 2 Plan: MAC Status Change Before Surgery: Norberto Gomez MD Nov 06, 2019 10:25
--- NOTE | 2019-11-06 10:26 | Immediate Post-Op Evaluation ---
Immediate Post-Op Evalulation Immediate Post-Op Evalulation Procedure: EGD with Bx Date of Evaluation: Nov 06, 2019 Time of Evaluation: 10:25 IV Fluids: 300 Blood Products: none Estimated Blood Loss: none Urinary Output: none Blood Pressure Systolic: 122 Blood Pressure Diastolic: 78 Pulse Rate: 64 Respiratory Rate: 20 O2 Sat by Pulse Oximetry: 99 Temperature (Fahrenheit): 97.6 Pain Score (1-10): 1 Nausea: No Vomiting: No Complications none Patient Status: reacts, patent, none Hydration Status: adequate Norberto Worley MD Nov 06, 2019 10:26
--- NOTE | 2019-11-06 10:28 | 48 Hour Post Anesthesia Eval ---
Post Anesthesia Evaluation Procedure: EGD with Bx Date of Evaluation: Nov 06, 2019 Time of Evaluation: 12:10 Blood Pressure Systolic: 116 0: 74 Pulse Rate: 68 Respiratory Rate: 18 Temperature (Fahrenheit): 97.8 O2 Sat by Pulse Oximetry: 98 Airway: patent Nausea: No Vomiting: No Pain Intensity: 2 Hydration Status: adequate Cardiopulmonary Status: stable Mental Status/LOC: patient returned to baseline Follow-up Care/Observations: n/a Post-Anesthesia Complications: none Follow-up care needed: N/A Norberto Worley MD Nov 06, 2019 10:28
[2019-11-06] MEDS ORDERED: fentaNYL 100 mcg/2 mL IV PRN (10:30)
--- NOTE | 2019-11-06 11:31 | NUR ---
CASE MANAGEMENT: REVIEW 11/06/19 SI: INTRACTABLE VOMITING WITH NAUSEA . UTI 97.1 66 20 121/77 97% ON RA IS:IN SURGERY NOW FOR EGD IVF NS BOLUS X1 IV PROTONIX BID IV D5@75ML/HR SEROQUEL PO QHS/PRN TRILEPTAL QHS IV MORPHINE SULFATE Q6HR/PRN \: 3E MED SURG UNIT DCP: HOME WHEN STABLE PLAN: EGD WITH BIOPSY F/U WITH FINDINGS
--- NOTE | 2019-11-06 13:11 | General Progress Note ---
Assessment/Plan Status: stable Assessment/Plan: #hx of gastric bypass #intractaable nausea, vomiting #Acute on chronic abdominal pain #Depression -GI eval -CLD for today. NPO after MN for endoscopy tmrw. -Pain control. -continue home quetiapine -continue home fluoxetine -otherwise euthymic on exam. Time of encounter 70 mins, >40 mins spent on counseling and coordination of care. Subjective ROS Limited/Unobtainable: No Constitutional: Denies: no symptoms, chills, diaphoresis, fever, malaise, weakness, other HEENT: Denies: no symptoms, eye pain, blurred vision, tearing, double vision, ear pain, ear discharge, nose pain, nose congestion, throat pain, throat swelling, mouth pain, mouth swelling, other Cardiovascular: Denies: no symptoms, chest pain, edema, irregular heart rate, lightheadedness, palpitations, syncope, other Respiratory: Denies: no symptoms, cough, orthopnea, shortness of breath, SOB with excertion, SOB at rest, sputum, stridor, wheezing, other Gastrointestinal/Abdominal: Denies: no symptoms, abdomen distended, abdominal pain, black stools, tarry stools, blood in stool, constipated, diarrhea, difficulty swallowing, nausea, poor appetite, poor fluid intake, rectal bleeding , vomiting, other Genitourinary: Denies: no symptoms, burning, discharge, frequency, flank pain, hematuria, incontinence, pain, urgency, other Neurologic/Psychiatric: Denies: no symptoms, anxiety, depressed, emotional problems, headache, numbness, paresthesia, pre-existing deficit, seizure, tingling, tremors, weakness, other Endocrine: Denies: no symptoms, excessive sweating, flushing, intolerance to cold, intolerance to heat, increased hunger, increased thirst, increased urine, unexplained weight gain, unexplained weight loss, other Hematologic/Lymphatic: Denies: no symptoms, anemia, easy bleeding, easy bruising, other Allergies: Coded Allergies: No Known Allergies (Unverified , 11/04/19) Subjective s/p EGD colo feeliong better today no chest pain or SOB Objective Last 24 Hour Vital Signs Date Time Temp Pulse Resp B/P (MAP) Pulse Ox O2 Delivery O2 Flow Rate FiO2 11/06/19 10:49 97.6 62 15 115/84 99 Room Air 11/06/19 10:45 62 15 125/84 98 Room Air 11/06/19 10:35 66 13 130/81 99 Room Air 11/06/19 10:30 64 14 114/80 98 Room Air 11/06/19 10:28 68 18 98 11/06/19 10:26 64 20 99 11/06/19 10:25 64 12 122/83 100 Nasal Cannula 2 11/06/19 10:18 97.6 63 12 131/75 99 Nasal Cannula 2 11/06/19 08:00 97.1 66 20 121/77 (92) 97 11/06/19 04:00 98.0 67 20 115/72 (86) 98 11/06/19 00:00 98.2 71 20 107/81 (90) 98 11/05/19 21:00 Room Air 11/05/19 20:00 97.3 66 20 118/78 (91) 98 11/05/19 18:33 98.5 70 18 113/80 (91) 96 Intake and Output 11/05/19 11/06/19 19:00 07:00 Intake Total 1680 ml 740 ml Balance 1680 ml 740 ml Intake Oral 1080 ml 740 ml IV Total 600 ml # Voids 7 Laboratory Tests 11/05/19 15:00: Urine Opiates Screen Negative, Urine Barbiturates Screen Negative, Phencyclidine (PCP) Screen Negative, Urine Amphetamines Screen Negative, Urine Benzodiazepines Screen PositiveH, Urine Cocaine Screen Negative, Urine Marijuana (THC) Screen Negative 11/06/19 05:30: White Blood Count 4.7L, Red Blood Count 4.34, Hemoglobin 11.7L, Hematocrit 35.5L , Mean Corpuscular Volume 82, Mean Corpuscular Hemoglobin 26.9L, Mean Corpuscular Hemoglobin Concent 32.9, Red Cell Distribution Width 12.9, Platelet Count 237, Mean Platelet Volume 5.8L, Neutrophils (%) (Auto) 52.3, Lymphocytes ( %) (Auto) 33.7, Monocytes (%) (Auto) 8.9, Eosinophils (%) (Auto) 4.0H, Basophils (%) (Auto) 1.2, Sodium Level 140, Potassium Level 4.2, Chloride Level 104, Carbon Dioxide Level 29, Anion Gap 7, Blood Urea Nitrogen 7, Creatinine 0.8 , Estimat Glomerular Filtration Rate > 60, Glucose Level 87, Calcium Level 8.7, Phosphorus Level 4.7, Magnesium Level 2.0, Total Bilirubin 0.3, Aspartate Amino Transf (AST/SGOT) 19, Alanine Aminotransferase (ALT/SGPT) 26, Alkaline Phosphatase 103, Total Protein 6.8, Albumin 3.2L, Globulin 3.6, Albumin/ Globulin Ratio 0.9L, Amylase Level 80, Lipase 231 Height (Feet): 5 Height (Inches): 5.00 Weight (Pounds): 222 General Appearance: no apparent distress, alert EENT: PERRL/EOMI Neck: non-tender Cardiovascular: normal peripheral pulses, normal rate, regular rhythm Respiratory/Chest: chest wall non-tender, lungs clear Abdomen: normal bowel sounds, non tender, soft Extremities: non-tender Skin: normal pigmentation Salvador Medina M.D. Nov 06, 2019 13:11
[2019-11-06] MEDS: LORazepam 1mg tab ORAL PRN (13:16)
--- NOTE | 2019-11-06 14:20 | Consultation ---
History of Present Illness General Date patient seen: Nov 06, 2019 Reason for Hospitalization: Gastrointestinal Illness Present Illness HPI This is a very pleasant 54-year-old female who has had history of gastric bypass with revision 2 years ago that presents [facility] for evaluation of abdominal pain nausea and emesis. Patient states that she intermittently gets this epigastric left upper quadrant abdominal discomfort after eating and the pain is sometimes severe without radiation but occasionally can have radiation to the mid back. Followed by emesis at times. She does not have consistent eating habits with a bariatric gastric bypass diet and therefore exhibits these symptoms came in for evaluation CT performed noted as below surgery called to evaluate and assist with care patient seen, patient evaluated, chart reviewed. States pain is better now she is tolerating diet. Has not a bowel movement in a few days. Passing flatus. Allergies: Coded Allergies: No Known Allergies (Unverified , 11/04/19) COVID-19 Screening Contact w/high risk pt: No Recent Travel to affected area: No Experienced COVID-19 symptoms?: No Medication History Scheduled Metformin HCl (Metformin HCl), 500 MG PO BID, (Reported) Quetiapine Fumarate (Quetiapine Fumarate), 700 MG ORAL BEDTIME, (Reported) Scheduled PRN Clonidine HCl (Clonidine HCl), 0.1 MG GT for anxiety, (Reported) Gabapentin (Gabapentin), 600 MG PO TID PRN for anxiety, (Reported) Miscellaneous Medications Fluoxetine (Fluoxetine Hcl), 20 MG MISC, (Reported) Oxcarbazepine (Oxcarbazepine), 600 MG PO, (Reported) Patient History History Provided By: Patient, Medical Record, PMD Healthcare decision maker Resuscitation status Advanced Directive on File Past Medical/Surgical History Past Medical/Surgical History: (1) UTI (urinary tract infection) (2) Intractable vomiting with nausea Review of Systems Review of Symptoms General ROS: no weight loss or fever Psychological ROS: no depression or mood changes, no memory loss Ophthalmic ROS: no visual changes or eye irritation ENT ROS: no nasal congestion, hearing loss, dizziness Allergy and Immunology ROS: no allergic symptoms or urticaria Hematological and Lymphatic ROS: no swollen glands, unusual bleeding or bruising Endocrine ROS: no polyuria, polydipsia, weight changes, temperature intolerance Respiratory ROS: no cough, shortness of breath, or wheezing Cardiovascular ROS: no chest pain or dyspnea on exertion Gastrointestinal ROS: denies abdominal pain, bright red blood in stool. Musculoskeletal ROS: no myalgias or arthralgias Neurological ROS: no TIA or stroke symptoms Dermatological ROS: no new or changing skin lesions, rashes or pruritis Physical Exam Physical Exam General appearance: alert, cooperative, no distress, appears stated age Head: Normocephalic, without obvious abnormality, atraumatic Eyes: conjunctivae/corneas clear. PERRL, EOM's intact. Fundi benign Throat: Lips, mucosa, and tongue normal. Teeth and gums normal Neck: supple, symmetrical, trachea midline, no adenopathy, thyroid: not enlarged, symmetric, no tenderness/mass/nodules, no carotid bruit and no JVD Lungs: clear to auscultation bilaterally Heart: regular rate and rhythm, S1, S2 normal, no murmur, click, rub or gallop Abdomen: soft, non-tender. Bowel sounds normal. No masses, no organomegaly Extremities: extremities normal, atraumatic, no cyanosis or edema Pulses: 2+ and symmetric Skin: Skin color, texture, turgor normal. No rashes or lesions Neurologic: Grossly normal Last 24 Hour Vital Signs Date Time Temp Pulse Resp B/P (MAP) Pulse Ox O2 Delivery O2 Flow Rate FiO2 11/06/19 10:49 97.6 62 15 115/84 99 Room Air 11/06/19 10:45 62 15 125/84 98 Room Air 11/06/19 10:35 66 13 130/81 99 Room Air 11/06/19 10:30 64 14 114/80 98 Room Air 11/06/19 10:28 68 18 98 11/06/19 10:26 64 20 99 11/06/19 10:25 64 12 122/83 100 Nasal Cannula 2 11/06/19 10:18 97.6 63 12 131/75 99 Nasal Cannula 2 11/06/19 08:00 97.1 66 20 121/77 (92) 97 11/06/19 04:00 98.0 67 20 115/72 (86) 98 11/06/19 00:00 98.2 71 20 107/81 (90) 98 11/05/19 21:00 Room Air 11/05/19 20:00 97.3 66 20 118/78 (91) 98 11/05/19 18:33 98.5 70 18 113/80 (91) 96 Intake and Output 11/05/19 11/06/19 19:00 07:00 Intake Total 1680 ml 740 ml Balance 1680 ml 740 ml Intake Oral 1080 ml 740 ml IV Total 600 ml # Voids 7 Laboratory Tests Test 11/05/19 15:00 11/06/19 05:30 Urine Opiates Screen Negative (NEGATIVE) Urine Barbiturates Screen Negative (NEGATIVE) Phencyclidine (PCP) Screen Negative (NEGATIVE) Urine Amphetamines Screen Negative (NEGATIVE) Urine Benzodiazepines Screen Positive (NEGATIVE) H Urine Cocaine Screen Negative (NEGATIVE) Urine Marijuana (THC) Screen Negative (NEGATIVE) White Blood Count 4.7 K/UL (4.8-10.8) L Red Blood Count 4.34 M/UL (4.20-5.40) Hemoglobin 11.7 G/DL (12.0-16.0) L Hematocrit 35.5 % (37.0-47.0) L Mean Corpuscular Volume 82 FL (80-99) Mean Corpuscular Hemoglobin 26.9 PG (27.0-31.0) L Mean Corpuscular Hemoglobin Concent 32.9 G/DL (32.0-36.0) Red Cell Distribution Width 12.9 % (11.6-14.8) Platelet Count 237 K/UL (150-450) Mean Platelet Volume 5.8 FL (6.5-10.1) L Neutrophils (%) (Auto) 52.3 % (45.0-75.0) Lymphocytes (%) (Auto) 33.7 % (20.0-45.0) Monocytes (%) (Auto) 8.9 % (1.0-10.0) Eosinophils (%) (Auto) 4.0 % (0.0-3.0) H Basophils (%) (Auto) 1.2 % (0.0-2.0) Sodium Level 140 MMOL/L (136-145) Potassium Level 4.2 MMOL/L (3.5-5.1) Chloride Level 104 MMOL/L (98-107) Carbon Dioxide Level 29 MMOL/L (21-32) Anion Gap 7 mmol/L (5-15) Blood Urea Nitrogen 7 mg/dL (7-18) Creatinine 0.8 MG/DL (0.55-1.30) Estimat Glomerular Filtration Rate > 60 mL/min (>60) Glucose Level 87 MG/DL (74-106) Calcium Level 8.7 MG/DL (8.5-10.1) Phosphorus Level 4.7 MG/DL (2.5-4.9) Magnesium Level 2.0 MG/DL (1.8-2.4) Total Bilirubin 0.3 MG/DL (0.2-1.0) Aspartate Amino Transf (AST/SGOT) 19 U/L (15-37) Alanine Aminotransferase (ALT/SGPT) 26 U/L (12-78) Alkaline Phosphatase 103 U/L (46-116) Total Protein 6.8 G/DL (6.4-8.2) Albumin 3.2 G/DL (3.4-5.0) L Globulin 3.6 g/dL Albumin/Globulin Ratio 0.9 (1.0-2.7) L Amylase Level 80 U/L (25-115) Lipase 231 U/L (73-393) Height (Feet): 5 Height (Inches): 5.00 Weight (Pounds): 222 Medications Current Medications Medications (Trade) Dose Ordered Sig/Cassandra Route PRN Reason Start Time Stop Time Status Last Admin Dose Admin Acetaminophen (Tylenol) 650 mg Q6H PRN ORAL Mild Pain (Pain Scale 1-3) 11/04/19 23:45 12/04/19 23:44 Barium Sulfate (Readi-Cat 2) 450 ml NOW PRN ORAL Radiology Procedure 11/04/19 19:45 11/06/19 19:35 Dextrose/Sodium Chloride 1,000 ml @ 75 mls/hr [id number] IV 11/05/19 01:00 12/05/19 00:59 11/05/19 18:31 Docusate Sodium (Colace) 100 mg TWICE A DAY ORAL 11/05/19 09:00 12/05/19 08:59 11/05/19 10:01 Fluoxetine HCl (PROzac) 20 mg DAILY ORAL 11/05/19 09:00 12/05/19 08:59 11/05/19 10:03 Iohexol (OMNIPAQUE-300 100ml) 100 ml NOW PRN INJ Radiology Procedure 11/04/19 19:45 11/06/19 19:35 Linaclotide (Linzess) 290 mcg BEFORE BREAKFAST ORAL 11/07/19 06:30 02/05/20 06:29 Lorazepam (Ativan) 1 mg Q6H PRN ORAL For Anxiety 11/05/19 20:15 11/12/19 20:14 11/06/19 13:16 Morphine Sulfate (Morphine Sulfate) 1 mg Q6H PRN IVP Moderate Pain (Pain Scale 4-6) 11/04/19 23:45 11/11/19 23:44 11/05/19 10:52 Morphine Sulfate (Morphine Sulfate) 2 mg Q6H PRN IVP Severe Pain (Pain Scale 7-10) 11/04/19 23:45 11/11/19 23:44 Ondansetron HCl (Zofran) 4 mg PRN PRN IVP Nausea & Vomiting 11/04/19 22:45 Oxcarbazepine (TrileptaL) 600 mg BEDTIME ORAL 11/05/19 21:00 12/05/19 20:59 11/05/19 20:49 Pantoprazole (Protonix) 40 mg EVERY 12 HOURS IV 11/05/19 09:00 12/05/19 08:59 11/05/19 20:49 Polyethylene Glycol (Miralax) 17 gm BEDTIME ORAL 11/05/19 21:00 12/05/19 20:59 11/05/19 20:50 Quetiapine Fumarate (SEROqueL) 700 mg BEDTIME ORAL 11/05/19 21:00 12/20/19 20:59 11/05/19 21:53 Assessment/Plan Problem List: (1) UTI (urinary tract infection) ICD Codes: N39.0 - Urinary tract infection, site not specified SNOMED: 04123489 Qualifiers: Qualified Codes: N30.00 - Acute cystitis without hematuria (2) Intractable vomiting with nausea Assessment & Plan: 54 female abdominal pain acute intermittent for some time now history of gastric bypass revision 2 years ago eating habits when discussed not consistent with gastric bypass post diet. Likely nausea and vomiting from oral intake. Pain potentially related but currently patient asymptomatic and states pain is improved since admission. CT noted potential enteritis which is also be a second potential diagnosis differential for her pain. Currently no nausea vomiting tolerating diet pain improved. She is passing flatus not a bowel movement constipated. No acute surgical invention indicated recommended at this time. Bowel care stool softeners Gastric bypass diet discussed with patient at bedside Enteritis discussed with patient at bedside Goals of post gastric bypass diet and care and exercise discussed with patient at bedside follow-up with primary bariatric surgeon upon discharge. Thank you for let me participate patient's care ICD Codes: R11.2 - Nausea with vomiting, unspecified SNOMED: 374235716 (3) H/O gastric bypass ICD Codes: Z98.84 - Bariatric surgery status SNOMED: 574120796 Lenny Mcgovern Nov 06, 2019 14:20
--- NOTE | 2019-11-06 14:52 | General Progress Note ---
Assessment/Plan Problem List: (1) Intractable vomiting with nausea ICD Codes: R11.2 - Nausea with vomiting, unspecified SNOMED: 511036806 (2) H/O gastric bypass ICD Codes: Z98.84 - Bariatric surgery status SNOMED: 862290130 Status: stable Assessment/Plan: Ms. Albright is a 54year old female with obesity, hx of bypass surgery, depression, presenting with aucte on chronic abd pain and 2 days of acute n/v. #hx of gastric bypass #intractaable nausea, vomiting #Acute on chronic abdominal pain -GI consult appreciated -s/p EGD (11/05), normal findings. d/w GI. can be discharged home once tolerates regular diet. -advance from [facility] -> regular today. -plan for d/c home tmrw. patient agreeable. -Pain control. #Obesity -diet/exercise counseling. #Depression -continue home quetiapine -continue home fluoxetine -otherwise euthymic on exam. Time spent on encounter, 60 mins, 40mins on counseling , coordination of care. d /w RN, consultants. Time of note doesn't reflect time of encounter. Subjective Date patient seen: Nov 06, 2019 ROS Limited/Unobtainable: No Constitutional: Denies: no symptoms, chills, diaphoresis, fever, malaise, weakness, other HEENT: Denies: no symptoms, eye pain, blurred vision, tearing, double vision, ear pain, ear discharge, nose pain, nose congestion, throat pain, throat swelling, mouth pain, mouth swelling, other Cardiovascular: Denies: no symptoms, chest pain, edema, irregular heart rate, lightheadedness, palpitations, syncope, other Respiratory: Denies: no symptoms, cough, orthopnea, shortness of breath, SOB with excertion, SOB at rest, sputum, stridor, wheezing, other Genitourinary: Denies: no symptoms, burning, discharge, frequency, flank pain, hematuria, incontinence, pain, urgency, other Endocrine: Denies: no symptoms, excessive sweating, flushing, intolerance to cold, intolerance to heat, increased hunger, increased thirst, increased urine, unexplained weight gain, unexplained weight loss, other Hematologic/Lymphatic: Denies: no symptoms, anemia, easy bleeding, easy bruising, other Allergies: Coded Allergies: No Known Allergies (Unverified , 11/04/19) Subjective came back from EGD. Denies any more nausea, vomiting, abd pain. Now just hungry. Objective Last 24 Hour Vital Signs Date Time Temp Pulse Resp B/P (MAP) Pulse Ox O2 Delivery O2 Flow Rate FiO2 11/06/19 10:49 97.6 62 15 115/84 99 Room Air 11/06/19 10:45 62 15 125/84 98 Room Air 11/06/19 10:35 66 13 130/81 99 Room Air 11/06/19 10:30 64 14 114/80 98 Room Air 11/06/19 10:28 68 18 98 11/06/19 10:26 64 20 99 11/06/19 10:25 64 12 122/83 100 Nasal Cannula 2 11/06/19 10:18 97.6 63 12 131/75 99 Nasal Cannula 2 11/06/19 08:00 97.1 66 20 121/77 (92) 97 11/06/19 04:00 98.0 67 20 115/72 (86) 98 11/06/19 00:00 98.2 71 20 107/81 (90) 98 11/05/19 21:00 Room Air 11/05/19 20:00 97.3 66 20 118/78 (91) 98 11/05/19 18:33 98.5 70 18 113/80 (91) 96 Intake and Output 11/05/19 11/06/19 19:00 07:00 Intake Total 1680 ml 740 ml Balance 1680 ml 740 ml Intake Oral 1080 ml 740 ml IV Total 600 ml # Voids 7 Laboratory Tests 11/05/19 15:00: Urine Opiates Screen Negative, Urine Barbiturates Screen Negative, Phencyclidine (PCP) Screen Negative, Urine Amphetamines Screen Negative, Urine Benzodiazepines Screen PositiveH, Urine Cocaine Screen Negative, Urine Marijuana (THC) Screen Negative 11/06/19 05:30: White Blood Count 4.7L, Red Blood Count 4.34, Hemoglobin 11.7L, Hematocrit 35.5L , Mean Corpuscular Volume 82, Mean Corpuscular Hemoglobin 26.9L, Mean Corpuscular Hemoglobin Concent 32.9, Red Cell Distribution Width 12.9, Platelet Count 237, Mean Platelet Volume 5.8L, Neutrophils (%) (Auto) 52.3, Lymphocytes ( %) (Auto) 33.7, Monocytes (%) (Auto) 8.9, Eosinophils (%) (Auto) 4.0H, Basophils (%) (Auto) 1.2, Sodium Level 140, Potassium Level 4.2, Chloride Level 104, Carbon Dioxide Level 29, Anion Gap 7, Blood Urea Nitrogen 7, Creatinine 0.8 , Estimat Glomerular Filtration Rate > 60, Glucose Level 87, Calcium Level 8.7, Phosphorus Level 4.7, Magnesium Level 2.0, Total Bilirubin 0.3, Aspartate Amino Transf (AST/SGOT) 19, Alanine Aminotransferase (ALT/SGPT) 26, Alkaline Phosphatase 103, Total Protein 6.8, Albumin 3.2L, Globulin 3.6, Albumin/ Globulin Ratio 0.9L, Amylase Level 80, Lipase 231 Height (Feet): 5 Height (Inches): 5.00 Weight (Pounds): 222 General Appearance: no apparent distress, alert EENT: PERRL/EOMI Neck: supple Cardiovascular: normal rate, regular rhythm Respiratory/Chest: lungs clear, normal breath sounds Abdomen: non tender, soft Neurologic: alert, oriented x 3 Jos Celestin MD Nov 06, 2019 14:52
[2019-11-06] MEDS ORDERED: Milk of Magnesia 30ml Ud ORAL SCH (15:30)
--- NOTE | 2019-11-06 16:15 | Procedure Note ---
DATE OF PROCEDURE: 11/06/2019 SURGEON: Bradley Heath M.D. PROCEDURE: Upper endoscopy with biopsy. ANESTHESIA: Per Dr. Worley. INSTRUMENT: Olympus adult flexible upper endoscope. INDICATIONS: Dysphagia, abdominal pain. REASON FOR PROCEDURE: The procedure, risks, benefits, and possible consequences, including hemorrhage, aspiration, perforation and infection, and alternative treatments, were explained to the patient/legal guardian by Dr. Bradley Heath and the patient/legal guardian understood and accepted these risks. PROCEDURE IN DETAIL: After informed consent was obtained and the patient was adequately sedated, Olympus upper endoscope was advanced from mouth into the esophagus. The patient has a history of prior gastric bypass. There is evidence of 5 cm gastric pouch from 38 cm from the incisors to about 43 cm from the incisors. There was evidence of gastritis in that pouch, which was biopsied to rule out H. pylori infection. There was no obvious anastomotic stricture. No obvious bleeding at this time. Scope was easily advanced into the small bowel. SUMMARY OF FINDINGS: 1. Gastritis. 2. 5 cm gastric pouch. 3. No obvious evidence of anastomotic stricture. RECOMMENDATIONS: Start liquid diet and advance as tolerated. I want to thank Dr. Salvador Medina for this kind referral. Bradley Heath M.D. DR: BELL JOB#: [id number] CC:
--- NOTE | 2019-11-06 19:21 | NUR ---
NURSE NOTES: Report received from SHAHANA Werner. Patient in stable condition.
--- NOTE | 2019-11-06 19:42 | NUR ---
HAND-OFF: Report given to Sudhakar HARKINS, pt in stable condition. - COVID- 19 test done today since patient stated that is required per her psych facility where she came from. - plan for possible d/c tomorrow.
[2019-11-06] MEDS ORDERED: Milk of Magnesia 30ml Ud ORAL PRN (21:00)
[2019-11-06] MEDS: OXcarbazepine 150mg tab ORAL SCH (21:02)
[2019-11-06] MEDS: Miralax 17gm pkt ORAL SCH (21:03)
[2019-11-06] MEDS: QUEtiapine 200mg tab ORAL SCH (21:03)
[2019-11-07] VITALS: BP 129/53
[2019-11-07 04:00] VITALS: BP 95/70
[2019-11-07] MEDS: D5NS 1,000 ML IV SCH (06:48)
[2019-11-07 07:02] LABS: ALANINE AMINOTRANSFERASE 35 U/L (12-78); ALBUMIN 2.9 G/DL (3.4-5.0); ALBUMIN/GLOBULIN RATIO 0.9 (1.0-2.7); ALKALINE PHOSPHATASE 100 U/L (46-116); ANION GAP 8 mmol/L (5-15); ASPARTATE AMINO TRANSFERASE 15 U/L (15-37); BILIRUBIN,TOTAL 0.2 MG/DL (0.2-1.0); BLOOD UREA NITROGEN 9 mg/dL (7-18); CALCIUM 8.2 MG/DL (8.5-10.1); CARBON DIOXIDE 27 MMOL/L (21-32); CHLORIDE 107 MMOL/L (98-107); CREATININE 0.9 MG/DL (0.55-1.30); PHOSPHORUS 5.1 MG/DL (2.5-4.9); SODIUM 142 MMOL/L (136-145)
--- NOTE | 2019-11-07 07:37 | NUR ---
NURSE NOTES: Report given to SHAHANA Cornelius. Patient stable.
--- NOTE | 2019-11-07 07:38 | NUR ---
NURSE NOTES: Patient is in bed awake and able to verbalize needs. Stable. Denies pain or SOB. Plan of care discussed with patient. Patient instructed to use call light for assistance, verbalized understanding. Patient is in bed in locked and lowest position with call light within reach. All needs met at this time. Will continue to monitor.
[2019-11-07 08:00] VITALS: BP 125/69
[2019-11-07] MEDS: Pantoprazole Inj IV SCH (08:06)
[2019-11-07] MEDS: Docusate 100mg cap ORAL SCH (08:06)
[2019-11-07] MEDS ORDERED: Milk of Magnesia 30ml Ud ORAL PRN (09:00)
[2019-11-07] MEDS: LORazepam 1mg tab ORAL PRN (10:14)
--- NOTE | 2019-11-07 10:34 | NUR ---
NURSE NOTES: Patient had bm x2.
--- NOTE | 2019-11-07 10:53 | General Progress Note ---
Assessment/Plan Problem List: (1) H/O gastric bypass ICD Codes: Z98.84 - Bariatric surgery status SNOMED: 456427905 (2) Intractable vomiting with nausea ICD Codes: R11.2 - Nausea with vomiting, unspecified SNOMED: 310831875 (3) UTI (urinary tract infection) ICD Codes: N39.0 - Urinary tract infection, site not specified SNOMED: 65700547 Qualifiers: Qualified Codes: N30.00 - Acute cystitis without hematuria Status: stable Assessment/Plan: ppi bowel regimen s/p EGD on reg diet CT reviewed abx for UTI Subjective ROS Limited/Unobtainable: Yes Allergies: Coded Allergies: No Known Allergies (Unverified , 11/04/19) Objective Last 24 Hour Vital Signs Date Time Temp Pulse Resp B/P (MAP) Pulse Ox O2 Delivery O2 Flow Rate FiO2 11/07/19 09:00 Room Air 11/07/19 08:00 98.0 71 20 125/69 (87) 99 11/07/19 04:00 97.5 80 19 95/70 (78) 96 11/07/19 00:00 98.0 105 20 129/53 (78) 96 11/06/19 21:00 Room Air 11/06/19 20:00 98.2 80 20 104/65 (78) 96 11/06/19 16:00 97.8 80 20 122/64 (83) 96 11/06/19 12:00 97.3 60 18 123/79 (94) 97 Intake and Output 11/06/19 11/07/19 19:00 07:00 Intake Total 650 ml 1600 ml Output Total 0 ml Balance 650 ml 1600 ml Intake Oral 400 ml 1600 ml IV Total 250 ml Estimated Blood Loss 0 ml # Voids 3 8 Laboratory Tests 11/07/19 05:00: Sodium Level 142, Potassium Level 4.0, Chloride Level 107, Carbon Dioxide Level 27, Anion Gap 8, Blood Urea Nitrogen 9, Creatinine 0.9, Estimat Glomerular Filtration Rate > 60, Glucose Level 91, Calcium Level 8.2L, Phosphorus Level 5.1H, Magnesium Level 2.3, Total Bilirubin 0.2, Aspartate Amino Transf (AST/SGOT ) 15, Alanine Aminotransferase (ALT/SGPT) 35, Alkaline Phosphatase 100, Total Protein 6.3L, Albumin 2.9L, Globulin 3.4, Albumin/Globulin Ratio 0.9L Height (Feet): 5 Height (Inches): 5.00 Weight (Pounds): 222 General Appearance: alert EENT: normal ENT inspection Neck: normal inspection Cardiovascular: normal rate Respiratory/Chest: decreased breath sounds Abdomen: normal bowel sounds, non tender, soft Extremities: non-tender Bradley Heath MD Nov 07, 2019 10:53
[2019-11-07 12:00] VITALS: BP 121/86
--- NOTE | 2019-11-07 13:07 | Discharge Summary ---
Discharge Summary Hospital Course Date of Admission Nov 04, 2019 at 22:12 Date of Discharge 11/07/2019 Admitting Diagnosis intractable vomiting HPI Kelsie Jo Albright is a 54 year old female who was admitted on Nov 04, 2019 at 22:12 for Intractable Vomiting x 1 day Consultations gi Procedures EGD Hospital Course Ms. Albright is a 54year old female with obesity, hx of bypass surgery, depression, presenting with aucte on chronic abd pain and 2 days of acute n/v. #hx of gastric bypass #intractaable nausea, vomiting #Acute on chronic abdominal pain -GI consult appreciated -s/p EGD (11/05), normal findings. d/w GI. can be discharged home once tolerates regular diet. -advance from [facility] -> regular today, tolerated well. d/c back to psych program housing today. -Pain control. #Obesity -diet/exercise counseling. #Depression -continue home quetiapine -continue home fluoxetine -otherwise euthymic on exam. Time spent on encounter, 55 mins, 30mins on counseling , coordination of care. d /w RN, consultants, case management. Time of note doesn't reflect time of encounter. Discharge Discharge Vital Signs Last Vital Signs Date Time Temp Pulse Resp B/P (MAP) Pulse Ox O2 Delivery O2 Flow Rate FiO2 11/07/19 09:00 Room Air 11/07/19 08:00 98.0 71 20 125/69 (87) 99 11/06/19 10:25 2 11/04/19 22:55 98 Discharge Disposition Patient was discharged to Jos Celestin MD Nov 07, 2019 13:07
--- NOTE | 2019-11-07 13:57 | NUR ---
*-* INSURANCE *-* UPDATED CLINICALS AND REVIEWS HAVE BEEN FAXED TO: [facility]#[id number] P:[phone] F:[phone] F:[phone]~~PREFERRED
--- NOTE | 2019-11-07 14:04 | Surgery Progress Note ---
Surgery Progress Note Subjective Symptoms: improved, tolerating diet, voiding well, passing flatus, pain decreased Objective Last 24 Hour Vital Signs Date Time Temp Pulse Resp B/P (MAP) Pulse Ox O2 Delivery O2 Flow Rate FiO2 11/07/19 12:00 98.3 73 20 121/86 (98) 98 11/07/19 09:00 Room Air 11/07/19 08:00 98.0 71 20 125/69 (87) 99 11/07/19 04:00 97.5 80 19 95/70 (78) 96 11/07/19 00:00 98.0 105 20 129/53 (78) 96 11/06/19 21:00 Room Air 11/06/19 20:00 98.2 80 20 104/65 (78) 96 11/06/19 16:00 97.8 80 20 122/64 (83) 96 I&O Intake and Output 11/06/19 11/07/19 19:00 07:00 Intake Total 650 ml 1600 ml Output Total 0 ml Balance 650 ml 1600 ml Intake Oral 400 ml 1600 ml IV Total 250 ml Estimated Blood Loss 0 ml # Voids 3 8 Cardiovascular: RSR Respiratory: clear Abdomen: soft, non-tender, present bowel sounds Extremities: no edema, no tenderness, no cyanosis Laboratory Tests Test 11/07/19 05:00 Sodium Level 142 MMOL/L (136-145) Potassium Level 4.0 MMOL/L (3.5-5.1) Chloride Level 107 MMOL/L (98-107) Carbon Dioxide Level 27 MMOL/L (21-32) Anion Gap 8 mmol/L (5-15) Blood Urea Nitrogen 9 mg/dL (7-18) Creatinine 0.9 MG/DL (0.55-1.30) Estimat Glomerular Filtration Rate > 60 mL/min (>60) Glucose Level 91 MG/DL (74-106) Calcium Level 8.2 MG/DL (8.5-10.1) L Phosphorus Level 5.1 MG/DL (2.5-4.9) H Magnesium Level 2.3 MG/DL (1.8-2.4) Total Bilirubin 0.2 MG/DL (0.2-1.0) Aspartate Amino Transf (AST/SGOT) 15 U/L (15-37) Alanine Aminotransferase (ALT/SGPT) 35 U/L (12-78) Alkaline Phosphatase 100 U/L (46-116) Total Protein 6.3 G/DL (6.4-8.2) L Albumin 2.9 G/DL (3.4-5.0) L Globulin 3.4 g/dL Albumin/Globulin Ratio 0.9 (1.0-2.7) L Plan Problems: (1) UTI (urinary tract infection) (2) Intractable vomiting with nausea Assessment & Plan: 54 female abdominal pain acute intermittent for some time now history of gastric bypass revision 2 years ago eating habits when discussed not consistent with gastric bypass post diet. Likely nausea and vomiting from oral intake. Pain potentially related but currently patient asymptomatic and states pain is improved since admission. CT noted potential enteritis which is also be a second potential diagnosis differential for her pain. Currently no nausea vomiting tolerating diet pain improved. She is passing flatus not a bowel movement constipated. No acute surgical invention indicated recommended at this time. Bowel care stool softeners Gastric bypass diet discussed with patient at bedside Enteritis discussed with patient at bedside Goals of post gastric bypass diet and care and exercise discussed with patient at bedside follow-up with primary bariatric surgeon upon discharge. Thank you for let me participate patient's care improving pain resolving no n/v/f/c tolerating diet understands gastric bypass diet now d/c planning thank you (3) H/O gastric bypass Lenny Mcgovern Nov 07, 2019 14:04
--- NOTE | 2019-11-07 14:16 | General Progress Note ---
Assessment/Plan Status: stable Assessment/Plan: #hx of gastric bypass #intractaable nausea, vomiting #Acute on chronic abdominal pain #Depression -GI eval -CLD for today. NPO after MN for endoscopy tmrw. -Pain control. -continue home quetiapine -continue home fluoxetine -otherwise euthymic on exam. Time of encounter 70 mins, >40 mins spent on counseling and coordination of care. Subjective ROS Limited/Unobtainable: No Constitutional: Denies: no symptoms, chills, diaphoresis, fever, malaise, weakness, other HEENT: Denies: no symptoms, eye pain, blurred vision, tearing, double vision, ear pain, ear discharge, nose pain, nose congestion, throat pain, throat swelling, mouth pain, mouth swelling, other Cardiovascular: Denies: no symptoms, chest pain, edema, irregular heart rate, lightheadedness, palpitations, syncope, other Respiratory: Denies: no symptoms, cough, orthopnea, shortness of breath, SOB with excertion, SOB at rest, sputum, stridor, wheezing, other Gastrointestinal/Abdominal: Denies: no symptoms, abdomen distended, abdominal pain, black stools, tarry stools, blood in stool, constipated, diarrhea, difficulty swallowing, nausea, poor appetite, poor fluid intake, rectal bleeding , vomiting, other Genitourinary: Denies: no symptoms, burning, discharge, frequency, flank pain, hematuria, incontinence, pain, urgency, other Neurologic/Psychiatric: Denies: no symptoms, anxiety, depressed, emotional problems, headache, numbness, paresthesia, pre-existing deficit, seizure, tingling, tremors, weakness, other Endocrine: Denies: no symptoms, excessive sweating, flushing, intolerance to cold, intolerance to heat, increased hunger, increased thirst, increased urine, unexplained weight gain, unexplained weight loss, other Hematologic/Lymphatic: Denies: no symptoms, anemia, easy bleeding, easy bruising, other Allergies: Coded Allergies: No Known Allergies (Unverified , 11/04/19) Subjective s/p EGD colo feeliong better today no chest pain or SOB Objective Last 24 Hour Vital Signs Date Time Temp Pulse Resp B/P (MAP) Pulse Ox O2 Delivery O2 Flow Rate FiO2 11/07/19 12:00 98.3 73 20 121/86 (98) 98 11/07/19 09:00 Room Air 11/07/19 08:00 98.0 71 20 125/69 (87) 99 11/07/19 04:00 97.5 80 19 95/70 (78) 96 11/07/19 00:00 98.0 105 20 129/53 (78) 96 11/06/19 21:00 Room Air 11/06/19 20:00 98.2 80 20 104/65 (78) 96 11/06/19 16:00 97.8 80 20 122/64 (83) 96 Intake and Output 11/06/19 11/07/19 19:00 07:00 Intake Total 650 ml 1600 ml Output Total 0 ml Balance 650 ml 1600 ml Intake Oral 400 ml 1600 ml IV Total 250 ml Estimated Blood Loss 0 ml # Voids 3 8 Laboratory Tests 11/07/19 05:00: Sodium Level 142, Potassium Level 4.0, Chloride Level 107, Carbon Dioxide Level 27, Anion Gap 8, Blood Urea Nitrogen 9, Creatinine 0.9, Estimat Glomerular Filtration Rate > 60, Glucose Level 91, Calcium Level 8.2L, Phosphorus Level 5.1H, Magnesium Level 2.3, Total Bilirubin 0.2, Aspartate Amino Transf (AST/SGOT ) 15, Alanine Aminotransferase (ALT/SGPT) 35, Alkaline Phosphatase 100, Total Protein 6.3L, Albumin 2.9L, Globulin 3.4, Albumin/Globulin Ratio 0.9L Height (Feet): 5 Height (Inches): 5.00 Weight (Pounds): 222 Salvador Medina M.D. Nov 07, 2019 14:16
--- NOTE | 2019-11-07 15:00 | NUR ---
NURSE NOTES: Patient discharged home as ordered. Stable. Denies pain or SOB. Patient was given thorough discharge instructions by RN, patient verbalized understanding. Patient arranged transportation. Skin is c/d/i. No IV access. Patient has all belongings. All written instructions reviewed with patient. Patient assisted outside by staff without incident.
[2019-11-07] MEDS ORDERED: D5NS 1000ml IV ONE (15:04)
--- NOTE | 2019-11-08 16:00 | NUR ---
*-* NO DISCHARGE SUMMARY IN THE SYSTEM UNABLE TO SEND *-*
--- NOTE | 2019-11-11 13:47 | NUR ---
*-* NO DISCHARGE SUMMARY IN THE SYSTEM UNABLE TO SEND *-*
--- NOTE | 2019-11-12 16:19 | NUR ---
*-* INSURANCE *-* UPDATED CLINICALS AND REVIEWS HAVE BEEN FAXED TO: [facility]#[id number] [phone] F:[phone] F:[phone]~~PREFERRED
== END 2019-11-07 15:05 | disposition home or self-care (01) | DRG 392 ==
LOC: EMR 19:48 → 3E 22:12 → EDBEDREQ 22:29
PROC: 0DB68ZX Excision of Stomach, Via Natural or Artificial Opening Endoscopic, Diagnostic (ICD-10-PCS; principal; 2019-11-06 10:05)
DX: K29.70 Gastritis, unspecified, without bleeding (principal); N39.0 Urinary tract infection, site not specified; E66.9 Obesity, unspecified; Z68.36 Body mass index [BMI] 36.0-36.9, adult; F32.9 Major depressive disorder, single episode, unspecified; Z98.84 Bariatric surgery status; R10.9 Unspecified abdominal pain
CPT/HCPCS: 36415; 74177; 80053; 80307; 81003; 82150; 83690; 83735; 84100; 85025; 94003; 94150; 96361; 96365; 96375; 99285; J2250; J2405; J2765; J7030